=== PATIENT | female | born 1960 | race Caucasian/White ===

== ENCOUNTER → 2018-03-15 | Outpatient (CLI) | payer OTHER ==
[2018-03-15 10:38] LABS: Basophils % (A) 1 %; Eosinophils % (A) 1 %; HCT 46.1 % (34.0-46.0); HGB 15.6 gm/dL (11.4-16.0); Lymphocytes # (A) 1.5 k/uL (1.0-4.8); Lymphocytes % (A) 30 %; MCH 28.9 pg (25.0-35.0); MCHC 33.8 g/dL (31.0-37.0); MCV 85.7 fL (80.0-100.0); Mean Platelet Volume 6.4; Monocytes # (A) 0.2 k/uL (0-1.0); Monocytes % (A) 5 %; Neutrophils # (A) 3.3 k/uL (1.3-7.7); Neutrophils % (A) 63 %; Platelet Count 275 k/uL (150-450); RBC 5.38 m/uL (3.80-5.40); RDW 12.4 % (11.5-15.5); WBC 5.2 k/uL (3.8-10.6)
[2018-03-15 10:52] LABS: Anion Gap 15 mmol/L; Blood Urea Nitrogen 16 mg/dL (7-17); Carbon Dioxide 28 mmol/L (22-30); Chloride 103 mmol/L (98-107); Glucose 111 mg/dL (74-99); Potassium 3.9 mmol/L (3.5-5.1); Sodium 146 mmol/L (137-145)
== END | disposition home or self-care (01) ==
LOC: LABPAT 09:50
PROVIDERS: ATTEND Obstetrics & Gynecology
DX: Z01.818 Encounter for other preprocedural examination (principal); I10 Essential (primary) hypertension; N81.4 Uterovaginal prolapse, unspecified; Z01.812 Encounter for preprocedural laboratory examination
CPT/HCPCS: 80051; 82565; 82947; 84520; 85025; 87086; 93005

== ENCOUNTER 2018-03-25 05:34 | Observation (INO) | payer OTHER ==
[2018-03-19 09:44] VITALS: BMI 25.8
--- NOTE | 2018-03-20 09:19 | HP ---
HISTORY AND PHYSICAL History and physical for surgery for 03/25/2018, which is this Saturday. This is a 58-year-old white female, 5, para 4-0-1-4, who presented to the office with an increasing perineal bulge and pressure. She denies postmenopausal bleeding. She at times has to splint the perineal body to the evacuate the rectum thoroughly. Evaluation was consistent with pelvic organ prolapse, and the patient has consented to vaginal surgery for same. PAST MEDICAL HISTORY: Significant for mild hypertension, irritable bowel syndrome, and uterine prolapse diagnosed in the past. PAST SURGICAL HISTORY: Cholecystectomy, tonsillectomy. CURRENT MEDICATIONS: Hyoscyamine sulfate 0.125 mg tablets every 4 hours as needed, irbesartan 75 mg tablets once daily. ALLERGIES: None known. FAMILY HISTORY: Significant for hypertension, diabetes, and breast cancer. REPRODUCTIVE HISTORY: Reproductive history is significant for normal spontaneous vaginal deliveries x4, all full-term and unremarkable. SOCIAL HISTORY: Patient is a branch or department chief librarian locally, she is , she denies alcohol or tobacco use. PHYSICAL EXAM: On exam, this is a pleasant white female, she is 5 feet 6 inches, 164 pounds, BMI 26, vital signs stable and patient is afebrile. Blood pressure 144/80 on exam today. HEENT examination is negative, no thyromegaly, no cervical lymphadenopathy. Good dentition is noted. Breasts are bilaterally symmetric to inspection with no skin dimpling, nipple discharge, or axillary adenopathy. Abdomen is soft, nontender. Active bowel sounds are noted. No organosplenomegaly is appreciated. There is no CVA tenderness. The chest is clear to auscultation in all jimenez anteriorly and posteriorly with no rales or rhonchi. Cardiac exam reveals regular rate and rhythm with no murmur, click, or rub. On pelvic examination, the external genitalia is well estrogenized and atraumatic to appearance. Cervix is multiparous, recent Pap smear is within normal limits. There is a grade 1 to 2 cystocele, large grade 3 to 4 uterine prolapse and grade 4 rectocele appreciated. Adnexa are negative to palpation bilaterally. Rectal exam reveals good sphincter tone and FIT negative stool. IMPRESSION: Increasingly symptomatic uterine prolapse and rectocele. Small cystocele, not symptomatic. PLAN: The patient is currently sexually active. Because the cystocele is not relevant clinically, we will proceed with vaginal hysterectomy and rectocele repair. She understands the risks of surgery to include but not be exclusive of bleeding, infection, perforation or damage to bowel, bladder, ureters, blood vessels, or indeed any pelvic or abdominal organs. Pessary use has been discussed and declined. All questions answered. Risks of anesthesia including aspiration, nerve damage, and even are all reviewed. The patient has no concerns or other issues at this time. We will proceed as above at [facility] on 03/25/2018. MMODL / IJN: [id number] /
[~2018-03-25 05:34] MED LIST: LIDOCAINE 1% 20 ML VIAL (10MG/ML) FOR IV START INTRADERMA PRN; MORPHINE SULFATE 4 MG/0.8 ML SYRINGE (INJ) IV PRN; ceFAZolin IN SWFI 2 GM/20 ML SYRINGE IVP ONE
[2018-03-25] MEDS ORDERED: DEXAMETHASONE SOD PHOSPHATE 10 MG/ML 1 ML VIAL IV ONE (06:36)
[2018-03-25] MEDS: LACTATED RINGERS 1,000 ML IV SCH (06:37)
[2018-03-25] MEDS ORDERED: ONDANSETRON 4 MG/2 ML VIAL IVP ONE (06:37)
[2018-03-25] MEDS: fentaNYL (PF) 50 MCG/ML 2 ML AMP IV ONE ×2 (07:10→09:38)
[2018-03-25] MEDS ORDERED: MIDAZOLAM 2 MG/2 ML VIAL IV ONE (07:10)
[2018-03-25] MEDS ORDERED: KETOROLAC 30 MG/ML 1 ML VIAL ONE (07:23)
[2018-03-25] MEDS ORDERED: LIDOCAINE 1% INJ 10MG/ML (20 ML MDV) ONE (07:23)
[2018-03-25] MEDS ORDERED: PROPOFOL 10 MG/ML 20 ML VIAL IV ONE (07:23)
[2018-03-25] MEDS ORDERED: MIDAZOLAM 2 MG/2 ML VIAL ONE (07:23)
[2018-03-25] MEDS ORDERED: fentaNYL (PF) 50 MCG/ML 2 ML AMP ONE (07:23)
[2018-03-25] MEDS ORDERED: VASOPRESSIN 20 UNIT/ML 1 ML VIAL SQ ONE (07:40)
[2018-03-25] MEDS ORDERED: NALBUPHINE 10 MG/ML AMPUL IV PRN (07:42)
[2018-03-25] MEDS ORDERED: METOCLOPRAMIDE 5 MG/ML 2 ML VIAL IVP PRN ×2 (07:42→08:53)
[2018-03-25] MEDS ORDERED: NALOXONE 0.4 MG/ML 1 ML VIAL IV PRN (07:42)
[2018-03-25] MEDS ORDERED: BACITRACIN 500 UNIT/GM OINT 28.4 GM TUBE TOPICAL ONE (07:42)
[2018-03-25] MEDS ORDERED: MORPHINE SULFATE 4 MG/0.8 ML SYRINGE (INJ) IVP PRN (07:42)
[2018-03-25] MEDS ORDERED: diphenhydrAMINE 50 MG/ML 1 ML VIAL IVP PRN ×2 (07:42→08:53)
[2018-03-25] MEDS ORDERED: PROMETHAZINE INJ 3.125 MG in SODIUM CHLORIDE 0.9% 50 ML IVPB PRN (07:42)
[2018-03-25] MEDS ORDERED: Acetaminophen-Codeine 300-30mg TAB PO PRN (08:53)
[2018-03-25] MEDS ORDERED: ZOLPIDEM 5 MG TAB PO PRN (08:53)
[2018-03-25] MEDS ORDERED: SIMETHICONE 80 MG CHEWABLE PO PRN (08:53)
--- NOTE | 2018-03-25 08:53 | P.OP ---
Date of Procedure: 03/25/18 Preoperative Diagnosis: Uterine prolapse, rectocele Postoperative Diagnosis: Same, normal-appearing ovaries bilaterally, grade 3 cystocele Procedure(s) Performed: Vaginal hysterectomy, cystocele and rectocele repair Anesthesia: FLORENCE Surgeon: Ana Cristina Mayo Childcare Attendant #1: Lance Short Estimated Blood Loss (ml): 50 IV fluids (ml): 600 Urine output (ml): 100 Pathology: other (Cervix and uterus) Condition: stable Disposition: PACU Operative Findings: Normal-appearing ovaries bilaterally Description of Procedure: Patient is brought to the operating room where a general anesthetic is administered after the spinal with Duramorph is placed. The appropriate timeout is performed to assure proper patient and procedural identification. Urine hCG is given, antibiotics are given as well. Patient is positioned in the dorsal lithotomy position. The cervix, vagina, perineal bodies are all prepped and draped in usual sterile fashion. Bladder is drained for approximately 100 mL of clear yellow urine. Weighted speculum was placed into the vagina. Anterior lip of the cervix is grasped with a double-tooth tenaculum. The cervix is injected circumferentially with a dilute Pitressin solution. Norton blade scalpel is used to incise the mucosa with a V like positioning in the back. A sponge is used to sweep the mucosa from the underlying planes. At all times care is taken to keep the mucosa swept well away from the operative field to avoid bladder and/or ureteral injury. The peritoneum is entered at 6:00 and suture tied with 2-0 Vicryl suture, held with a hemostat. The large billed speculum was then placed into the vagina. The uterosacral cardinal ligaments are identified, clamped cut and held laterally with hemostats. Uterine vasculature is identified, clamped cut and suture ligated. 2 additional pedicles are taken superior to the vessels. The anterior peritoneum is entered. The uterus is then "walked out" posteriorly. Jonathan clamps are used across the final pedicles and the specimen is removed. 0 Vicryl sutures used to tie these pedicles, flashed, and then retied for excellent hemostasis. Bilateral ovaries are then visualized, noted to be within normal limits and therefore left in situ per the patient's wishes. The speculum is changed to the shallow billed speculum. The 2-0 Vicryl suture is brought across in a pursestring fashion to close the peritoneum. The previously placed uterosacral cardinal ligaments are brought across to incorporate the opposite ligament as well as vaginal mucosa and the vagina is closed. 3 additional [id number] sutures of 0 Vicryl are used for final cuff closure. The anterior portion is held with Allis clamps. The anterior repair is then started. The anterior mucosa is injected with dilute Pitressin in the midline. Metzenbaum scissors are used to undermine the mucosa and an excellent plane is established. A sponge is used to sweep the mucosa from the underlying fascial plane. The Hawk catheter is then placed in the bladder is drained. 2-0 Vicryl suture is used in an interrupted fashion to bring the fascial edges together thereby completely reducing the cystocele. Metzenbaum scissors are used to trim the redundant mucosa. 2-0 Vicryl sutures used in a whipstitch to close the mucosa for excellent approximation and hemostasis. Now a triangular portion of tissue is removed from the perineal body. Allis clamps are used to hold the tissue. Dilute Pitressin is used to inject the mucosa in the midline. Metzenbaum scissors are used to open this to the apex of the defect. The edges are held with Allis clamps and a fanlike fashion. Sponge is used to sweep the underlying fascial plane from the overlying mucosa. 2-0 Vicryl sutures used to bring the edges together thereby completely reducing the rectocele. A 2-0 Vicryl suture in a whipstitch fashion is used in a running locking manner to close the mucosa. An episiotomy like closure is used to complete the repair. The vagina is packed with one-inch iodophor gauze. All sponge needle and enhancement counts are correct. Hawk is noted to be draining clear urine.
[2018-03-25] MEDS: SENNOSIDES-DOCUSATE SODIUM 1 EACH TAB PO SCH ×2 (09:59→20:54)
[2018-03-25] MEDS: ONDANSETRON ODT 4 MG TAB PO ONE ×2 (09:59→13:55)
[2018-03-25] MEDS: KETOROLAC 30 MG/ML 1 ML VIAL IVP PRN ×2 (16:32→23:19)
[2018-03-26] MEDS: KETOROLAC 30 MG/ML 1 ML VIAL IVP PRN (05:32)
[2018-03-26] MEDS: LACTATED RINGERS 1,000 ML IV SCH (05:37)
--- NOTE | 2018-03-26 07:48 | P.DS ---
Providers Date of admission: 03/25/18 23:52 Expected date of discharge: 03/26/18 Attending physician: Ana Cristina Mayo Primary care physician: Adelaida Reza [facility] Course: This is a 58-year-old white female 3 para 3 who presented with an increasing symptomatic pelvic organ prolapse. After thorough consultation, she declined the option of pessary and asked for surgical repair. Risks and benefits were thoroughly described to the patient prior to surgery, please see my dictated history and physical for details. Patient underwent a vaginal hysterectomy, anterior and posterior colporrhaphy under my care yesterday. She did very well intraoperatively, estimated blood loss 50 mL's. Ovaries appeared normal at the time of surgery and therefore left in situ per her wishes. Please see my dictated operative note for details. This morning the patient is doing very well. She is passing flatus, is ambulating, is tolerating regular diet. She has minimal pain. There is no vaginal bleeding, vaginal packing and Hawk catheter have both been discontinued. We are awaiting a spontaneous void which will be measured along with post void residual. Patient's chest is clear, extremities are negative for edema, abdomen is soft and nontender, no CVA tenderness. Pending successful void patient will be discharged home later today. She is being discharged home in very good condition. She will follow-up with me in the office in 2 weeks. I have reminded her no intercourse, tampons or douching. No heavy lifting. No driving for 2 weeks. She will use over-the- counter ibuprofen products as needed for pain, 200 mg pills, 3 every 6 hours as needed. She will call me with any vaginal bleeding, any pain not alleviated by ibuprofen, with any back or extremity issues, with any problems breathing or indeed with any concerns. Patient Condition at Discharge: Good Plan - Discharge Summary Discharge Rx Participant: No New Discharge Prescriptions: No Action Amitriptyline HCl [Elavil] 10 mg PO HS PRN PRN Reason: See Comments L.acidoph,Paracasei, B.lactis [Probiotic] 1 cap PO DAILY RX: Irbesartan 75 mg PO QAM Hyoscyamine Sulfate [Hyoscyamine Sulfate SL] 0.125 mg SL Q4H PRN PRN Reason: see comment Discharge Medication List Amitriptyline HCl [Elavil] 10 mg PO HS PRN 03/19/18 [History] Hyoscyamine Sulfate [Hyoscyamine Sulfate SL] 0.125 mg SL Q4H PRN 03/19/18 [ History] L.acidoph,Paracasei, B.lactis [Probiotic] 1 cap PO DAILY 03/19/18 [History] RX: Irbesartan 75 mg PO QAM 03/19/18 [History] Follow up Appointment(s)/Referral(s): Ana Cristina Mayo MD [STAFF PHYSICIAN] - 2 Weeks Discharge Disposition: HOME SELF-CARE
[2018-03-26] MEDS: SENNOSIDES-DOCUSATE SODIUM 1 EACH TAB PO SCH (08:40)
[2018-03-26] MEDS ORDERED: ACETAMINOPHEN TAB 325 MG TAB PO PRN (08:55)
--- NOTE | 2018-03-26 09:28 | P.PN ---
Progress Note - Text Date: 03/26/2018 Time: 07:07 The patient is status post, vaginal hysterectomy Vital signs stable VAS: 0-10 Patient has no complaints of pain. The patient incurred some minimal itching yesterday, this itching is now subsiding. Pain meds to be managed by service.
[2018-03-26 09:41] VITALS: BP 133/74; PULSE 93; RESP 17; TEMP 97.8
== END 2018-03-26 10:26 | disposition home or self-care (01) ==
LOC: OR 05:34 → 6PED 08:55 → OR 23:52
PROVIDERS: ADMIT Obstetrics & Gynecology; ATTEND Obstetrics & Gynecology
DX: N81.4 Uterovaginal prolapse, unspecified (principal); N80.0 Endometriosis of uterus; N87.9 Dysplasia of cervix uteri, unspecified; L29.9 Pruritus, unspecified; K58.9 Irritable bowel syndrome, unspecified; F39 Unspecified mood [affective] disorder; I10 Essential (primary) hypertension; Z79.899 Other long term (current) drug therapy; Z90.49 Acquired absence of other specified parts of digestive tract; Z83.3 Family history of diabetes mellitus; Z82.49 Family history of ischemic heart disease and other diseases of the circulatory system; Z80.3 Family history of malignant neoplasm of breast
CPT/HCPCS: 58260; 57260; 81025; 86900; 86901; 88305; 86850; G0378 ×2; J2250; J1100; J2765; J2405; J2001; J3010; J1885 ×2; J2704

== ENCOUNTER → 2022-12-17 | Outpatient (CLI) | payer OTHER ==
--- NOTE | 2022-12-18 08:53 | MM ---
Reason for Exam: Screening (asymptomatic). Last mammogram was performed 1 year(s) and 11 month(s) ago. Patient History: Menarche at age 15. First Full-Term at age 25. Hysterectomy at age 58. Postmenopausal. Mother had breast cancer at or over age 50. Risk Values: Lisa 5 year model risk: 2.6%. NCI Lifetime model risk: 12.1%. Prior Study Comparison: 09/14/2008 Bilateral MG screening mammo w CAD - 2, [facility]. 04/04/2010 Bilateral MG screening mammo w CAD - 2, [facility]. 01/08/2021 Bilateral MG screening mammo w CAD - 2, [facility]. Tissue Density: The breast tissue is heterogeneously dense. This may lower the sensitivity of mammography. Findings: Analyzed By CAD. There is no suspicious group of microcalcifications or new suspicious mass in either breast. Overall Assessment: Negative, BI-RAD 1 Management: Screening Mammogram of both breasts in 1 year. A clinical breast exam by your physician is recommended on an annual basis and results should be correlated with mammographic findings. Electronically signed and approved by: Juan M King D.O.
== END | disposition home or self-care (01) ==
LOC: RADMAMWWP 08:39
PROVIDERS: ATTEND Family Medicine
DX: Z12.31 Encounter for screening mammogram for malignant neoplasm of breast (principal); Z80.3 Family history of malignant neoplasm of breast; Z78.0 Asymptomatic menopausal state
CPT/HCPCS: 77067